=== PATIENT | female | born 1960 | race Caucasian/White ===

== ENCOUNTER → 2017-08-06 | Outpatient (CLI) | payer OTHER ==
[~2017-08-06] VITALS: Ht 152.4 cm; Wt 77.1 kg
[~2017-08-06] MED LIST: TOBREX5 ML OP; ZYRTEC10 MG PO
== END | disposition home or self-care (01) ==
LOC: PPHC 14:21
DX: Z00.00 Encounter for general adult medical examination without abnormal findings (principal)

== ENCOUNTER 2017-08-28 12:42 | Outpatient (CLI) | payer OTHER | END 2017-08-28 12:46 | disposition home or self-care (01) | LOC: MAMO-SONO 12:42 | DX: N64.4 Mastodynia (principal); Z12.31 Encounter for screening mammogram for malignant neoplasm of breast ==

== ENCOUNTER 2018-09-09 11:58 | Outpatient (CLI) | payer OTHER ==
[~2018-09-09 11:58] MED LIST changes: +HYZAAR 50-12.51 EACH
== END 2018-09-09 15:00 | disposition home or self-care (01) ==
LOC: CERTIFICAD 11:58 → LAB 11:58 → CERTIFICAD 15:00
DX: Z11.3 Encounter for screening for infections with a predominantly sexual mode of transmission (principal)

== ENCOUNTER 2019-01-06 14:19 | Outpatient (CLI) | payer OTHER | END 2019-01-06 14:29 | disposition home or self-care (01) | LOC: MAMO-SONO 14:19 | DX: N64.4 Mastodynia (principal) ==

== ENCOUNTER → 2019-06-21 11:06 | Outpatient (CLI) | payer OTHER | END | disposition home or self-care (01) | LOC: LAB 11:06 | DX: E78.49 Other hyperlipidemia (principal); Z00.00 Encounter for general adult medical examination without abnormal findings; R42 Dizziness and giddiness; R10.2 Pelvic and perineal pain; R10.84 Generalized abdominal pain ==

== ENCOUNTER 2020-02-11 14:46 | Inpatient (IN) | payer OTHER ==
[~2020-02-11] VITALS: Ht 162.6 cm; Wt 77.1 kg
== END 2020-02-18 20:37 | disposition expired | DRG 208 ==
LOC: ER 14:46 → MEDJ 02-12 10:36 → ICU 02-16 10:01
PROVIDERS: ADMIT Internal Medicine; ATTEND Internal Medicine
PROC: 4A033R1 Measurement of Arterial Saturation, Peripheral, Percutaneous Approach (ICD-10-PCS; 2020-02-11)
PROC: 8E0ZXY6 Isolation (ICD-10-PCS; principal; 2020-02-12)
PROC: 4A12X4Z Monitoring of Cardiac Electrical Activity, External Approach (ICD-10-PCS; 2020-02-12)
PROC: 30233K1 Transfusion of Nonautologous Frozen Plasma into Peripheral Vein, Percutaneous Approach (ICD-10-PCS; 2020-02-14)
PROC: 3E0F7GC Introduction of Other Therapeutic Substance into Respiratory Tract, Via Natural or Artificial Opening (ICD-10-PCS; 2020-02-14)
PROC: 5A1945Z Respiratory Ventilation, 24-96 Consecutive Hours (ICD-10-PCS; 2020-02-15)
PROC: 0BH17EZ Insertion of Endotracheal Airway into Trachea, Via Natural or Artificial Opening (ICD-10-PCS; 2020-02-15)
PROC: 0B21XEZ Change Endotracheal Airway in Trachea, External Approach (ICD-10-PCS; 2020-02-18)
DX: U07.1 COVID-19 (principal); J12.89 Other viral pneumonia; J96.01 Acute respiratory failure with hypoxia; R04.2 Hemoptysis; E86.0 Dehydration; K52.9 Noninfective gastroenteritis and colitis, unspecified; D69.6 Thrombocytopenia, unspecified; I10 Essential (primary) hypertension; F41.1 Generalized anxiety disorder; R43.0 Anosmia; R43.2 Parageusia